=== PATIENT | male | born 1970 | race Caucasian/White ===

== ENCOUNTER 2020-08-29 11:58 | Emergency (ER) | payer SELFPAY ==
[~2020-08-29] VITALS: Ht 185.4 cm; Wt 94.7 kg
--- NOTE | 2020-08-29 12:18 | NUR ---
PATIENT WALKED BACK FROM TRIAGE WITH CHIEF C/O "I ALMOST PASSED OUT LAST NIGHT." PATIENT REPORS NOT "FEELING UP TO PAR TODAY." PATIENT FEELS LIGHTHEADED, DENIES N/V/D, DENIES CHEST PAIN. PATIENT REPORTS LEFT ARM NUMBNESS X2 MONTHS OFF AND ON. 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 VSS, ACCOMPANIED BY SIGNIFICANT OTHER .
--- NOTE | 2020-08-29 12:34 | NUR ---
ERMD AT BEDSIDE FOR EVALUATION.
--- NOTE | 2020-08-29 12:56 | NUR ---
XRAY AT BEDSIDE.
[2020-08-29 13:21] LABS: BASOPHILS % (AUTO) 1 % (0-1); EOSINOPHILS % (AUTO) 1 % (1-7); LYMPHOCYTES % (AUTO) 38 % (22-44); MEAN CORPUSCULAR HEMOGLOBIN 30.5 pg (27.5-34.5); MEAN CORPUSCULAR HGB CONC 33.8 g/dL (33.2-36.2); MEAN PLATELET VOLUME 7.1 fL (7.4-10.4); MONOCYTES % (AUTO) 10 % (2-9); NEUTROPHILS % (AUTO) 50 % (42-75); PLATELET COUNT 260 x10^3/uL (130-400); RED BLOOD COUNT 5.01 x10^6/uL (4.38-5.82); RED CELL DISTRIBUTION WIDTH 13.4 % (9.4-14.8)
[2020-08-29 13:22] LABS: MD NO
[2020-08-29 13:27] LABS: ALANINE AMINOTRANSFERASE 39 U/L (12-78); ALBUMIN 3.7 g/dL (3.4-5.0); ANION GAP 5 mmol/L (5-15); CALCIUM 8.4 mg/dL (8.5-10.1); CHLORIDE 110 mmol/L (98-107); CREATININE 0.96 mg/dL (0.7-1.3)
[2020-08-29 13:32] LABS: ALKALINE PHOSPHATASE 78 U/L (45-117); BILIRUBIN,TOTAL 1.1 mg/dL (0.2-1.0); TOTAL PROTEIN 6.7 g/dL (6.4-8.2); TROPONIN I < 0.015 ng/mL (0.000-0.045)
--- NOTE | 2020-08-29 13:59 | NUR ---
PATIENT RESTING IN GURNEY WATCHING TV, SIGNIFICANT OTHER AT BEDSIDE, NADN, VSS, CALL LIGHT WITHIN REACH. PATIENT UP FOR RECHECK.
[2020-08-29 14:14] VITALS: BP 131/86
--- NOTE | 2020-08-29 14:26 | NUR ---
ASSUMED CARE FOR DISCHARGE ONLY Patient/Caregiver given discharge instructions and they have confirmed that they understand the instructions. Patient ambulatory with steady gait.
== END 2020-08-29 14:28 | disposition home or self-care (01) ==
LOC: ED 14:08
DX: R55 Syncope and collapse (principal); R42 Dizziness and giddiness; R06.02 Shortness of breath; R07.89 Other chest pain
CPT/HCPCS: 36415; 71045; 80053; 84484; 85025; 93005; 99285